=== PATIENT | female | born 1995 | race Caucasian/White ===

== ENCOUNTER 2021-11-08 12:19 | Emergency (ER) | payer MEDICAID ==
[~2021-11-08] VITALS: Ht 167.6 cm; Wt 109.1 kg
[2021-11-08 12:22] VITALS: BP 135/97
[2021-11-08 12:46] LABS: BASOPHILS % (AUTO) 0.8 % (0-1); EOSINOPHILS % (AUTO) 0.9 % (0-6); LYMPHOCYTES # (AUTO) 1.4 X10'3 (1.1-4.8); LYMPHOCYTES % (AUTO) 38.9 % (21-51); MEAN CORPUSCULAR HEMOGLOBIN 30.3 PG (27.0-31.0); MEAN CORPUSCULAR HGB CONC 34.1 g/dL (33.0-36.5); MEAN CORPUSCULAR VOLUME 88.9 FL (78-98); MEAN PLATELET VOLUME 9.2 FL (7.4-10.4); MONOCYTES # (AUTO) 0.4 X10'3 (0-0.9); MONOCYTES % (AUTO) 11.2 % (2-12); NEUTROPHILS # (AUTO) 1.7 X10'3 (1.8-7.7); NEUTROPHILS % (AUTO) 48.2 % (42-75); PLATELET COUNT 176 X10'3 (140-440); RED BLOOD COUNT 4.94 X10'6 (4.20-5.60); RED CELL DISTRIBUTION WIDTH 12.9 % (11.5-14.5); WHITE BLOOD COUNT 3.5 X10'3 (4.5-11.0)
[2021-11-08 12:57] LABS: ALANINE AMINOTRANSFERASE 187 U/L (12-78); ALBUMIN 4.2 G/DL (3.4-5.0); ALKALINE PHOSPHATASE 75 IU/L (46-116); ANION GAP 9 (8-16); ASPARTATE AMINO TRANSFERASE 55 U/L (10-37); BILIRUBIN,TOTAL 0.4 MG/DL (0.1-1.0); BLOOD UREA NITROGEN 7 MG/DL (7-18); BUN/CREATININE RATIO 9.2 (6.6-38.0); CALCIUM 9.3 MG/DL (8.5-10.1); CHLORIDE 108 MMOL/L (99-107); CREATININE 0.76 MG/DL (0.40-0.90); GLUCOSE 92 MG/DL (70-104); LIPASE 57 U/L (73-393); POTASSIUM 3.9 MMOL/L (3.5-5.1); SODIUM 142 MMOL/L (135-145); TOTAL CARBON DIOXIDE 25.5 MMOL/L (24-32); TOTAL PROTEIN 8.3 G/DL (6.4-8.2); eGFR > 90 ML/MIN
[2021-11-08] MEDS ORDERED: diphenhydrAMINE 50 mg/ml inj IV ONE (14:35)
[2021-11-08] MEDS ORDERED: proCHLORperazine 10 MG/2 ml inj IV ONE (14:35)
[2021-11-08] MEDS ORDERED: normal saline 1000ml 1,000 ML IV ONE (14:35)
[2021-11-08] MEDS ORDERED: pantoprazole 40mg Tablet.DR PO SCH (15:45)
[2021-11-08] MEDS ORDERED: LIDOcaine Viscous 15ml cup MM ONE (15:45)
[2021-11-08] MEDS ORDERED: mag hydrox/Alum hydrox/simeth 30ml oral suspension PO ONE (15:45)
[2021-11-08] MEDS ORDERED: PANT-47 PO (15:46)
[2021-11-08] MEDS ORDERED: ONDA4TAB12 PO (15:46)
[2021-11-08 17:01] LABS: URINE HCG NEGATIVE (NEG)
[2021-11-08 17:03] LABS: CLARITY,URINE CLEAR (Clear); COLOR,URINE YELLOW (Yellow); GLUCOSE, URINE NEGATIVE (Neg); KETONES,URINE NEGATIVE (Neg); LEUKOCYTE ESTERASE ,URINE NEGATIVE (Neg); NITRITES, URINE NEGATIVE (Neg); OCCULT BLOOD,URINE NEGATIVE (Neg); PROTEIN,URINE NEGATIVE (Neg); UROBILINOGEN,URINE 0.2 E.U/dL (0.2-1.0)
[2021-11-08 17:28] LABS: UA COLLECTION TYPE CLN CATCH MIDSTREAM
== END 2021-11-08 16:42 | disposition home or self-care (01) ==
LOC: ER 12:20
DX: K29.70 Gastritis, unspecified, without bleeding (principal); Z91.040 Latex allergy status; Z79.899 Other long term (current) drug therapy
CPT/HCPCS: 36415; 80053; 81003; 81025; 83690; 85025; 96361; 96374; 96375; 99284; J0780; J1200; J7030